=== PATIENT | female | born 1985 | race Asian ===

== ENCOUNTER 2020-10-08 14:22 | Emergency (ER) | payer MEDICAID ==
--- NOTE | 2020-10-08 15:33 | ER Document Report ---
ED Respiratory Problem - General Chief Complaint: Cough Stated Complaint: COUGH,CONGESTION,HEADACHE Time Seen by Provider: 10/08/20 14:51 Primary Care Provider: [facility] [Provider Group] - Follow up as needed Mode of Arrival: Ambulatory Information source: Patient Notes: Patient is a 35-year-old female comes emergency room accompanied by her son and her uncle. Patient states that both her and the uncle tested positive for coronavirus on . Her son has not been tested. The original source of infection was evidently the uncle's who contracted a problem prior to. Patient complains of having shortness of breath increasing with a severe cough that she cannot get rid of and loss of taste and smell. She does state that she was given a steroid taper by an outside provider and is on her last pill for today but does not feel any better. She states she has been continuously running a temp over 101.0. She is taking Tylenol and Motrin to keep the fever down but it keeps coming back. Patient has had a cough. She also denies not having a flu shot. She does have a history of asthma and is using inhaler. Last menstrual period finished today. TRAVEL OUTSIDE OF THE [place] IN LAST 30 DAYS: No - HPI Patient complains to provider of: Asthma, Cough, Short of breath Onset: Last week Duration: Continuous, Worse/persistent Initiating Event: URI Quality of pain: No pain Short of Breath: Moderate Cough: Nonproductive At home treatment: Bronchodilators, Oral steroids Similar symptoms previously: Yes Recently seen / treated by doctor: Yes - Related Data Allergies/Adverse Reactions: No Known Allergies Allergy (Unverified 10/08/20 16:54) Past Medical History - General Information source: Patient - Social History Smoking Status: Never Smoker Frequency of alcohol use: None Drug Abuse: None Lives with: Family Family History: Reviewed & Not Pertinent Review of Systems - Review of Systems Constitutional: See HPI, Fever, Malaise, Weakness EENT: See HPI, Nose congestion Cardiovascular: No symptoms reported Respiratory: See HPI, Cough, Hurts to breathe, Short of breath, Wheezing Gastrointestinal: No symptoms reported Genitourinary: No symptoms reported Female Genitourinary: No symptoms reported Musculoskeletal: No symptoms reported Skin: No symptoms reported Hematologic/Lymphatic: No symptoms reported Neurological/Psychological: No symptoms reported -: Yes All other systems reviewed and negative Physical Exam - Vital signs Vitals: Temp Pulse Resp BP Pulse Ox 97.9 F 75 20 145/72 H 98 10/08/20 14:46 10/08/20 14:46 10/08/20 14:46 10/08/20 14:46 10/08/20 14:46 Interpretation: Hypertensive - Notes Notes: PHYSICAL EXAMINATION: GENERAL: Well-appearing, well-nourished and in no acute distress. HEAD: Atraumatic, normocephalic. EYES: Pupils equal round and reactive to light, extraocular movements intact, conjunctiva are normal. ENT: Examination head and upper airway show nasal mucosa be mildly erythematous and edematous with some rhinorrhea noted. No frontal or maxillary sinus tenderness to palpation. Posterior pharynx shows some mild erythema no exudates noted no tonsils see airway is patent. There is drainage in the posterior pharynx with no color it was thickly clear. NECK: Normal range of motion, supple without lymphadenopathy LUNGS: Auscultation patient's lungs show bilateral breath sounds that are decreased throughout faint inspiratory expiratory wheezes noted bilaterally no rhonchi is auscultated as well as no rales. HEART: Regular rate and rhythm without murmurs Musculoskeletal: Normal range of motion, no pitting or edema. No cyanosis. NEUROLOGICAL: Normal speech, normal gait. Normal sensory, motor exams PSYCH: Normal mood, normal affect. SKIN: Warm, Dry, normal turgor, no rashes or lesions noted. Course - Re-evaluation Re-evalutation: 10/08/20 19:07 Patient's labs came back negative x-ray was negative for any findings on Covid type relationships. However she does display the symptoms and she is positive given that she also has a history of asthma that is fairly extensive we will place her on albuterol inhaler, albuterol neb, Medrol Dosepak, doxycycline, Tylenol 3 - Vital Signs Vital signs: Temp Pulse Resp BP Pulse Ox 97.6 F 79 18 124/60 99 10/08/20 20:06 10/08/20 20:06 10/08/20 20:06 10/08/20 20:06 10/08/20 20:06 - Laboratory Results Critical Laboratory Results Reviewed: No Critical Results - Radiology Results Critical Radiology Results Reviewed: No Critical Results Discharge - Discharge Clinical Impression: Coronavirus infection, Acute asthmatic bronchitis Condition: Stable Disposition: HOME, SELF-CARE Instructions: COVID-19 Guidance for Persons Under Investigation, Asthma ([facility]), Bronchitis With Bronchospasm (Wheezing) ([facility]), Fever ([facility]), Viral Syndrome ([facility]) Additional Instructions: Home and rest. Medication as prescribed. Remember this is the coronavirus and you all have different symptoms and that there is no real treatment for any of it at this time. It is all symptomatic and Tylenol alternate with Motrin for fevers aches and pains. I am placing you on antibiotics because you have a history of the asthma and you are feeling worse. Take the medication as prescribed. Should you have worsening symptoms or increasing fevers that do not respond to Tylenol Motrin return to ER for reevaluation. Prescriptions: Acetaminophen with Codeine [Tylenol #3 Tablet] 1 each PO Q4HP PRN #20 tablet PRN Reason: Methylprednisolone [Medrol Dosepack (4 mg/Tab) 21 Tab/Dosepak] 21 tab PO ASDIR 6 Days #1 dspk Doxycycline Hyclate [Morgidox] 100 mg PO BID #20 capsule Albuterol Sulfate [Proair HFA Inhalation Aerosol 8.5 gm MDI] 2 puff IH Q4H PRN #1 mdi PRN Reason: Albuterol Sulfate [Ventolin 0.042% Neb 1.25 mg/3 mL Ampul] 1 vial NEB Q4 PRN #20 vial.neb PRN Reason: Forms: Elevated Blood Pressure Referrals: [facility] [Provider Group] - Follow up as needed
--- NOTE | 2020-10-08 16:12 | RADIOLOGY REPORT (SQ) ---
EXAM DESCRIPTION: CHEST SINGLE VIEW IMAGES COMPLETED DATE/TIME: 10/08/2020 4:04 pm REASON FOR STUDY: Call/short of breath/wheeze COMPARISON: None. EXAM PARAMETERS: NUMBER OF VIEWS: One view. TECHNIQUE: Single frontal radiographic view of the chest acquired. RADIATION DOSE: NA LIMITATIONS: None. FINDINGS: LUNGS AND PLEURA: No opacities, masses or pneumothorax. No pleural effusion. MEDIASTINUM AND HILAR STRUCTURES: No masses. Contour normal. HEART AND VASCULAR STRUCTURES: Heart normal in size. Normal vasculature. BONES: No acute findings. HARDWARE: None in the chest. OTHER: No other significant finding. IMPRESSION: NO ACUTE RADIOGRAPHIC FINDING IN THE CHEST. TECHNICAL DOCUMENTATION: JOB ID: [id number] 2010 [employer]- All Rights Reserved Reading location - IP/workstation name: [email or web address]
[2020-10-08] MEDS ORDERED: ACETAMINOPHEN WITH CODEINE #3 TABLET PO ONE (17:41)
[2020-10-08] MEDS ORDERED: DEXAMETHASONE SOD PHOS INJ 10 MG/1 ML VIAL IM ONE (18:05)
[2020-10-08 20:07] VITALS: BP 124/60
== END 2020-10-08 20:12 | disposition home or self-care (01) ==
LOC: ER 14:22
DX: U07.1 COVID-19 (principal); J45.909 Unspecified asthma, uncomplicated
CPT/HCPCS: 99284; 96372; 71045; J1100